=== PATIENT | female | born 2000 | race Caucasian/White ===

== ENCOUNTER 2022-09-24 12:00 | Outpatient (CLI) | payer OTHER ==
[2022-09-24 14:12] LABS: BHCG - Serum Negative (NEGATIVE); Pregs Control Background? CLEAR/WHITE (CLR/WHITE); Pregs Control Bar Appear? YES (CONTROL BAR)
== END 2022-09-24 12:01 | disposition home or self-care (01) ==
LOC: LABBT 12:00
PROVIDERS: ATTEND Specialist
DX: Z01.812 Encounter for preprocedural laboratory examination (principal); J35.01 Chronic tonsillitis; J03.01 Acute recurrent streptococcal tonsillitis; J02.9 Acute pharyngitis, unspecified
CPT/HCPCS: 84703; 85014

== ENCOUNTER 2022-10-02 07:25 | Day surgery (SDC) | payer OTHER ==
[2022-10-01 09:31] VITALS: BMI 18.0
[2022-10-02] MEDS ORDERED: Famotidine/PF 20 mg/2ml Vial ONE (10:17)
[2022-10-02] MEDS ORDERED: Fentanyl 100 MCG/2 ML VIAL ONE (10:17)
[2022-10-02] MEDS ORDERED: Dexamethasone 20 MG/5 ML VIAL ONE (10:39)
[2022-10-02] MEDS ORDERED: Metoclopramide HCl 10 MG/2 ML VIAL ONE (10:39)
[2022-10-02] MEDS ORDERED: PROPOFOL 200 MG/20 ML VIAL ONE (10:39)
[2022-10-02] MEDS ORDERED: Lidocaine 1% PF 5 ML VIAL ONE (10:39)
[2022-10-02] MEDS ORDERED: Ondansetron PF 4 MG/2 ML Vial ONE (10:39)
[2022-10-02] MEDS ORDERED: Hydrocodone-Acetamin 15 ML UDCUP ONE (11:57)
== END 2022-10-02 13:15 | disposition home or self-care (01) ==
LOC: SDC 07:25
PROVIDERS: ATTEND Specialist
PROC: 0CTPXZZ Resection of Tonsils, External Approach (ICD-10-PCS; principal; 2022-10-02)
DX: J03.01 Acute recurrent streptococcal tonsillitis (principal); J35.01 Chronic tonsillitis; F17.290 Nicotine dependence, other tobacco product, uncomplicated; Z88.2 Allergy status to sulfonamides
CPT/HCPCS: 88304; J1100; J2405; J2704; J2765; J3010; S0028